=== PATIENT | male | born 1970 | race Caucasian/White ===

== ENCOUNTER 2016-12-13 17:30 | Emergency (ER) | payer OTHER ==
[~2016-12-13] VITALS: Ht 175.3 cm; Wt 84.1 kg
[2016-12-13] MEDS ORDERED: VITA100067 PO (17:48)
[2016-12-13] MEDS ORDERED: CONC54TA4 PO (17:48)
[2016-12-13] MEDS ORDERED: blood pressure med PO (17:48)
[2016-12-13] MEDS ORDERED: HYDROmorphone HCL 1 MG/ML SYRINGE (J1170) IV ONE (19:00)
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
[2016-12-13] MEDS ORDERED: ARTI99.0 OU (22:50)
[2016-12-13] MEDS ORDERED: ATOR1TAB21 PO (22:50)
[2016-12-13] MEDS ORDERED: VALI5TAB PO (23:27)
[2016-12-13] MEDS ORDERED: OXYC1TAB23 PO (23:27)
[2016-12-13] MEDS ORDERED: OXYCODONE/APAP 5MG/325MG(BULK FOR ED) 1 TABLET PO ONE (23:30)
[2016-12-13 23:33] VITALS: BP 141/90
[2016-12-14] MEDS ORDERED: ONDANSETRON 4 MG ORAL DISINTEGRATING TAB (S0181) PO ONE
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
== END 2016-12-14 00:33 | disposition home or self-care (01) ==
LOC: M ED 17:30
DX: Z04.1 Encounter for examination and observation following transport accident (principal); S14.105A Unspecified injury at C5 level of cervical spinal cord, initial encounter; V43.12XA Car passenger injured in collision with other type car in nontraffic accident, initial encounter; Y92.481 Parking lot as the place of occurrence of the external cause; Y93.89 Activity, other specified; Y99.8 Other external cause status; M54.12 Radiculopathy, cervical region; M19.90 Unspecified osteoarthritis, unspecified site; Z79.899 Other long term (current) drug therapy; Z88.0 Allergy status to penicillin; Z98.890 Other specified postprocedural states; Z87.820 Personal history of traumatic brain injury
CPT/HCPCS: 70450; 72125; 72128; 72141; 96374; 96375; 99284; J1170; J3360